=== PATIENT | female | born 1980 | race African-American/Black ===

== ENCOUNTER 2021-09-03 12:52 | Emergency (ER) | payer OTHER, SELFPAY ==
[2021-09-03 13:14] VITALS: BP 120/88; PULSE 104; RESP 16; TEMP 37.5; O2SAT 100
--- NOTE | 2021-09-03 13:32 | ED.URI ---
HPI - URI/Sore Throat General Chief Complaint: Upper Respiratory Infection Stated Complaint: Cough,Congestion Source: patient and RN notes reviewed Mode of arrival: ambulatory Limitations: no limitations History of Present Illness HPI Narrative: Marianela ambulated into the [facility] accompanied by her son. Patient states he has had a cough since 09/01/2021. Patient states it is worse at night and she did not sleep at all last night due to the cough. Patient also states she has nasal congestion. Patient has not taken any [id number] cold medicine. Patient has tried hot showers with no relief. MD elicited complaint: cough Related Data Home Medications Medication Instructions Recorded Confirmed metformin mg PO 09/03/21 spironolactone 09/03/21 Allergies Allergy/AdvReac Type Severity Reaction Status Date / Time No Known Allergies Allergy Verified 09/03/21 13:21 Review of Systems Review of Systems: CONSTITUTIONAL: Denies body aches, fever, chills, or sweats. EYES: Denies visual changes, redness, or discharge. ENT: Denies rhinorrhea, +congestion, denies sore throat, or otalgia. CARDIOVASCULAR: Denies chest pain, palpitations, or edema. RESPIRATORY: + cough denies dyspnea. GASTROINTESTINAL: Denies abdominal pain, nausea, vomiting, or diarrhea. GENITOURINARY: Denies dysuria or hematuria. SKIN: Denies rash, itching, or wounds. MUSCULOSKELETAL: Denies back pain, joint pain, or myalgia. NEUROLOGIC: Denies headache, numbness, tingling, or weakness. PSYCH: Denies depression or anxiety. All systems reviewed & are unremarkable except as noted in HPI and below PMFSH Comments At time of signature, I have reviewed and agree with nursing past medical, surgical, social and family history unless otherwise noted. Please see nursing chart for further information. There is no relevant family history pertinent to the presenting complaint Exam Narrative: GENERAL: Well-appearing, well-nourished, and in no acute distress. HEAD: Normocephalic, atraumatic. EYES: EOMI. No redness or drainage. Conjunctivae normal. ENT: Mucous membranes pink and moist. Nares erythemic with clear drainage. LEft TM opaque with moderate bulging, no erythema noted. Left TM dull with minimal fluid and no bulging. Posterior pharynx is erythemic with mild edema no exudate noted . Uvula midline. NECK: Normal AROM. Supple. No lymphadenopathy. CHEST: No respiratory distress. Clear to auscultation. MUSCULOSKELETAL: No bony tenderness. EXTREMITIES: Normal range of motion. No edema. SKIN: Warm, dry, no rash. Capillary refill normal. Normal skin turgor. NEURO: No focal deficits. Alert and oriented x3. Gait steady. PSYCH: Normal affect. No signs of depression or anxiety. Course Vital Signs Vital signs: Vital Signs Temperature 37.5 C 09/03/21 13:14 Pulse Rate 104 H 09/03/21 13:14 Respiratory Rate 16 09/03/21 13:14 Blood Pressure 120/88 09/03/21 13:14 Pulse Oximetry 100 09/03/21 13:14 Temperature 37.5 C 09/03/21 13:14 Pulse Rate 104 H 09/03/21 13:14 Respiratory Rate 16 09/03/21 13:14 Blood Pressure 120/88 09/03/21 13:14 Pulse Oximetry 100 09/03/21 13:14 MDM - URI/Sore Throat MDM Narrative Medical decision making narrative: Patient has had symptoms for 3 days. Patient will be diagnosed with upper respiratory infection. Patient will be given prednisone and Tessalon Perles. Patient to follow-up with her primary care physician in 7 to 10 days for continued complaints or sooner Patient's son was present today and has similar symptoms. Son was negative for Covid. Differential Diagnosis Differential diagnosis: Likely upper respiratory infection, otitis media and viral infection Medical Records Attestation: I reviewed the patient's medical records. Critical Care Time Critical Care Time Critical Care Time: No Discharge Plan Discharge Clinical Impression: Upper respiratory infection Qualifiers:
== END 2021-09-03 13:40 | disposition home or self-care (01) ==
PROVIDERS: Emergency Provider Nurse Practitioner Family; PCP Nurse Practitioner Family
DX: J06.9 Acute upper respiratory infection, unspecified (principal); K21.9 Gastro-esophageal reflux disease without esophagitis; E03.9 Hypothyroidism, unspecified; E28.2 Polycystic ovarian syndrome
CPT/HCPCS: 99213; G0463

== ENCOUNTER 2021-09-09 12:40 | Emergency (ER) | payer OTHER, SELFPAY ==
[2021-09-09 12:48] VITALS: BP 111/73; PULSE 88; RESP 16; TEMP 36.3; O2SAT 100
--- NOTE | 2021-09-09 12:59 | ED.EYEPROB ---
HPI - Eye Problem General Chief complaint: Eye Problems Stated complaint: Left Eye Pain Time Seen by Provider: 09/09/21 12:59 Source: patient, RN notes reviewed and old records reviewed Mode of arrival: ambulatory Limitations: no limitations History of Present Illness HPI Narrative: 41-year-old female presents to the [facility] with complaints of left eye irritation/bump. States she noticed it this morning when looking in the mirror. Also reports that her eye this morning was red. Denies any change in vision blurry vision. Denies any eye pain. Denies headache. Denies any eye drainage. Denies any trauma to the eye. Related Data Home Medications Medication Instructions Recorded Confirmed metformin mg PO 09/03/21 spironolactone 09/03/21 Allergies Allergy/AdvReac Type Severity Reaction Status Date / Time No Known Allergies Allergy Verified 09/09/21 12:48 Review of Systems Review of Systems: All systems reviewed & are unremarkable except as noted in HPI and below Constitutional: Constitutional: Reports no additional constitutional complaints, Denies chills and Denies fever(s) Eyes: Eyes: Reports as per HPI, Denies blind spots, Denies blurry vision, Denies exophthalmos, Denies change in vision, Denies diplopia, Denies eye discharge, Denies dry eyes, Denies floaters, Reports irritation, Denies loss of vision, Denies other visual disturbances, Denies eye pain, Denies photophobia, Denies spots in vision and Denies tunnel vision ENT: Reports system reviewed and no additional complaints, except as documented Cardiovascular: Cardiovascular: Reports as per HPI Respiratory: Respiratory: Reports as per HPI Gastrointestinal: Gastrointestinal: Reports as per HPI Genitourinary: Genitourinary: Reports no additional female genitourinary complaints Musculoskeletal: Musculoskeletal: Reports no additional musculoskeletal complaints Integumentary/Breasts: Skin/Breast: Reports system reviewed and no additional complaints, except as docu Neurologic: Reports system reviewed and no additional complaints, except as documented Psychiatric: Psychiatric: Reports no additional psychiatric complaints Allergic/Immunologic: Allergic/Immunologic: Reports no additional allergic/immunologic complaints [facility] Past Medical History Medical History (Updated 09/12/21 @ 08:34 by Elise Teresa) No significant medical problems Surgical History Surgical History (Updated 09/12/21 @ 08:34 by Elise Teresa) No significant past surgical history Comments At the time of my signature, I reviewed and agree with the nursing past medical, surgical, social, and family history. There is no relevant family history pertinent to the patient complaint. Exam Const: General: healthy appearing, no acute distress and alert Limitations: no limitations HENMT: Head: normal to inspection Eyes: General: appearance normal, both eyes and all related structures Visual Lopez: normal visual lopez by confrontation Alignment and Position: alignment normal and position normal Periorbital: periorbital findings normal Eyelids: eyelids normal Conjunctivae: conjunctivae normal Sclera: sclerae normal Cornea: corneas normal Pupils: Equal, round and reactive pupils present and Pupils normal by confrontation EOM: EOMs intact bilaterally Direct Ophthalmoscopy: normal light reflex Eyes/upper lids images: 1. Reports seeing a bump to the muscular portion of the eye with increased redness Neck: Neck: normal visual inspection, no lymphadenopathy and no meningeal signs Chest: Chest palpation & inspection: normal inspection of the chest Resp: Effort & Inspection: normal respiratory effort and no use of accessory muscles Auscultation: clear to auscultation bilaterally, no crackles, no rales, no rhonchi and no wheezes Cardio: Rate: regular rate Rhythm: regular rhythm Back/Spine/Pelvis: Back: no CVA tenderness Skin: General skin exam: normal color Rash
== END 2021-09-09 13:15 | disposition home or self-care (01) ==
PROVIDERS: Emergency Provider Nurse Practitioner; PCP Nurse Practitioner Family
DX: H57.12 Ocular pain, left eye (principal)
CPT/HCPCS: 99213; G0463